=== PATIENT | male | born 1950 | race Caucasian/White ===

== ENCOUNTER 2024-01-05 07:46 | Day surgery (SDC) | payer MEDICARE, OTHER ==
[2024-01-05] MEDS ORDERED: Sodium Chloride 0.9(Preservative Free) 10 ML IJ ONE (07:47)
[2024-01-05] MEDS ORDERED: Depo-Medrol 40 MG/ML IM ONE (07:47)
[2024-01-05] MEDS ORDERED: LIDOCAINE HCL 1% 50 MG/5 ML VL PF IJ ONE (07:47)
[2024-01-05] MEDS ORDERED: DIPRIVAN 200 MG/20 ML IV ONE ×2 (09:52→10:03)
[2024-01-05] MEDS ORDERED: Lactated Ringers 1,000 ML IV ONE (10:06)
--- NOTE | 2024-01-05 11:44 | XRAY ---
Indication: Lumbar ORA. Intraoperative fluoroscopy provided for 23 seconds. 2 digital spot image submitted for interpretation demonstrates posterior needle tip projecting just posterior to lumbosacral junction interspace. Small amount of contrast injected for needle placement. Correlate with intraoperative findings/report.
--- NOTE | 2024-01-05 12:23 | XRAY ---
23 seconds of fluoroscopy was used in surgery for a lumbar ORA.
== END 2024-01-05 10:37 | disposition home or self-care (01) ==
LOC: SDC-PAIN 07:46
PROVIDERS: ATTEND Psychiatry & Neurology Pain Medicine
DX: M54.16 Radiculopathy, lumbar region (principal); E11.9 Type 2 diabetes mellitus without complications
CPT/HCPCS: 62323; 72100; 77003; 82947; J2001; J2704; Q9966

== ENCOUNTER 2024-04-05 14:21 | Day surgery (SDC) | payer MEDICARE, OTHER ==
[2024-04-05] MEDS ORDERED: LIDOCAINE HCL 1% AMPUL 5 ML IJ ONE (14:22)
[2024-04-05] MEDS ORDERED: BUPIVACAINE 0.5% VIAL IJ ONE (14:22)
[2024-04-05] MEDS ORDERED: Depo-Medrol 40 MG/ML IM ONE (14:22)
--- NOTE | 2024-04-05 19:38 | XRAY ---
Indication: Bilateral hip and bilateral greater trochanter injection. Intraoperative fluoroscopy provided for 1 minute 7 seconds. 4 digital spot image submitted for interpretation demonstrates needle tips projecting lateral to left/right femur necks and left/right greater trochanters. Small amount of contrast injected for all needle tip placement. Correlate with intraoperative findings/report.
--- NOTE | 2024-04-06 09:07 | XRAY ---
One minute and 7 seconds of fluoroscopy was used in surgery for a bilateral intra-articular hip and greater trochanteric bursa injection.
== END 2024-04-05 16:36 | disposition home or self-care (01) ==
LOC: SDC-PAIN 14:21
PROVIDERS: ATTEND Psychiatry & Neurology Pain Medicine
DX: M16.0 Bilateral primary osteoarthritis of hip (principal); M70.62 Trochanteric bursitis, left hip; M70.61 Trochanteric bursitis, right hip
CPT/HCPCS: 20610; 73522; 77002; Q9966

== ENCOUNTER 2024-07-11 14:21 | Day surgery (SDC) | payer MEDICARE, OTHER ==
[2024-07-11] MEDS ORDERED: Depo-Medrol 40 MG/ML IM ONE (14:22)
[2024-07-11] MEDS ORDERED: LIDOCAINE HCL 1% AMPUL 5 ML IJ ONE (14:22)
[2024-07-11] MEDS ORDERED: BUPIVACAINE 0.5% VIAL IJ ONE (14:22)
--- NOTE | 2024-07-11 17:03 | XRAY ---
Indication: Bilateral greater trochanter bursa injection. Intraoperative fluoroscopy provided for 39 seconds. 3 digital spot images submitted for interpretation demonstrates needle tips projecting lateral to left/right greater trochanters. Small amount of contrast injected for needle tip placement. Correlate with intraoperative findings/report.
--- NOTE | 2024-07-12 09:16 | XRAY ---
39 seconds of fluoroscopy was used in surgery for a bilateral greater trochanteric bursa injection.
== END 2024-07-11 16:52 | disposition home or self-care (01) ==
LOC: SDC-PAIN 14:21
PROVIDERS: ATTEND Psychiatry & Neurology Pain Medicine
DX: M70.62 Trochanteric bursitis, left hip (principal); M70.61 Trochanteric bursitis, right hip; E11.9 Type 2 diabetes mellitus without complications; M79.18 Myalgia, other site
CPT/HCPCS: 20553; 20610; 73521; 77002; 82947; Q9966